=== PATIENT | female | born 1990 | race Caucasian/White ===

== ENCOUNTER 2021-01-08 14:10 | Emergency (ER) | payer SELFPAY ==
[~2021-01-08] VITALS: Ht 160 cm; Wt 125.0 kg
[2021-01-08] MEDS ORDERED: INDERAL10 M1 PO (14:33)
[2021-01-08] MEDS ORDERED: PAROXETINE20 MG PO (14:33)
[2021-01-08 14:51] LABS: URINE BILIRUBIN - DIPSTICK NEGATIVE (NEGATIVE); URINE BLOOD DIPSTICK NEGATIVE (NEGATIVE); URINE CLARITY CLEAR; URINE COLOR YELLOW; URINE GLUCOSE - DIPSTICK NEGATIVE (NEGATIVE); URINE KETONE NEGATIVE (NEGATIVE); URINE LEUK ESTERASE NEGATIVE (Negative); URINE NITRITE - DIPSTICK NEGATIVE (Negative); URINE PH 5.5 (4.5-8.0); URINE PROTEIN - DIPSTICK NEGATIVE (NEG-TRACE); URINE SPECIFIC GRAVITY >=1.030; URINE UROBILINOGEN - DIPSTICK 0.2 E.U./dL (0.2)
[2021-01-08 15:04] VITALS: BP 196/101
[2021-01-08] MEDS ORDERED: MEDDOSEPAK PO (16:30)
[2021-01-08] MEDS ORDERED: VENTOLIN HFA IN (16:30)
[2021-01-08] MEDS ORDERED: ALBUTEROL SUL0.083 % IN (16:30)
[2021-01-09] MEDS ORDERED: AZITHROMYCIN500 MG PO (17:46)
[2021-01-09] MEDS ORDERED: FIORICET PO (17:46)
== END 2021-01-08 16:38 | disposition home or self-care (01) | DRG 866 ==
LOC: ED 14:10
DX: B34.9 Viral infection, unspecified (principal); Z20.822 Contact with and (suspected) exposure to COVID-19

== ENCOUNTER 2021-01-09 15:47 | Emergency (ER) | payer SELFPAY ==
[~2021-01-09] VITALS: Ht 160 cm; Wt 124.7 kg
[~2021-01-09 15:47] MED LIST: ALBUTEROL SUL0.083 % IN; INDERAL10 M1 PO; MEDDOSEPAK PO; PAROXETINE20 MG PO; VENTOLIN HFA IN
[2021-01-09 16:19] LABS: HEMATOCRIT 43.9 % (37.0-47.0); HEMOGLOBIN 14.6 g/dl (12.0-16.0); IMMATURE GRANULOCYTES 0.2 % (0.0-5.0); MEAN CELL VOLUME 79.2 fL CALC (80.0-100.0); MEAN CORPUSCULAR HGB 26.4 pG CALC (26.0-32.0); MEAN CORPUSCULAR HGB CONC 33.3 g/dL CAL (32.0-36.0); NEUT# 14.99 thou/uL (2.00-7.15); RED BLOOD COUNT 5.54 mill/uL (4.20-5.60); RED CELL DISTRI WIDTH 13.9 % (11.5-15.5)
[2021-01-09 16:24] LABS: HCG SERUM/URINE (NEG/POS) NEGATIVE (NEGATIVE)
[2021-01-09 16:29] LABS: ALKALINE PHOSPHATASE 69 u/l (38-126); ANION GAP 20 (6-22 (CALC)); BILIRUBIN, TOTAL 0.6 mg/dL (0.0-1.4); BUN 12 mg/dL (7-17); BUN/CREATININE RATIO 18 (12-20 (CALC)); CARBON DIOXIDE 23 mmol/l (22-30); CHLORIDE 102 mmol/l (95-108); CREATININE 0.7 mg/dL (0.5-1.0); GFR > 60 ML/MIN (>=60 (CALC)); GFR FOR AFR.AMER. > 60 ML/MIN (>=60 (CALC)); POTASSIUM 3.8 mmol/l (3.5-5.1); SGOT/AST 37 u/l (14-36); SODIUM 141 mmol/l (137-146); TOTAL PROTEIN 9.3 g/dL (6.3-8.2)
[2021-01-09 16:41] LABS: MYOGLOBIN 38 ng/mL (0 - 62)
[2021-01-09 17:10] LABS: URINE BILIRUBIN - DIPSTICK NEGATIVE (NEGATIVE); URINE BLOOD DIPSTICK TRACE-INTACT (NEGATIVE); URINE COLOR YELLOW; URINE GLUCOSE - DIPSTICK NEGATIVE (NEGATIVE); URINE KETONE NEGATIVE (NEGATIVE); URINE LEUK ESTERASE NEGATIVE (NEGATIVE); URINE NITRITE - DIPSTICK NEGATIVE (Negative); URINE PH 5.5 (4.5-8.0); URINE PROTEIN - DIPSTICK 30 mg/dL (NEG-TRACE); URINE SPECIFIC GRAVITY >=1.030; URINE UROBILINOGEN - DIPSTICK 0.2 E.U./dL (0.2)
[2021-01-09 17:19] LABS: URINE SQUAMOUS EPITHELIAL CELL FEW EPI/hpf (0-FEW)
[2021-01-09 17:20] LABS: URINE MUCUS FEW hpf (NONE-FEW)
[2021-01-09] MEDS ORDERED: FIORICET PO (17:46)
[2021-01-09] MEDS ORDERED: AZITHROMYCIN500 MG PO (17:46)
[2021-01-09 17:56] VITALS: BP 128/83
== END 2021-01-09 18:02 | disposition home or self-care (01) | DRG 203 ==
LOC: ED 15:47
DX: J45.909 Unspecified asthma, uncomplicated (principal); I10 Essential (primary) hypertension; Z20.822 Contact with and (suspected) exposure to COVID-19

== ENCOUNTER 2021-08-12 15:36 | Emergency (ER) | payer MEDICAID ==
[~2021-08-12] VITALS: Ht 160 cm; Wt 127.3 kg
[~2021-08-12 15:36] MED LIST changes: +AZITHROMYCIN500 MG PO; +FIORICET PO
[2021-08-12 16:38] LABS: IMMATURE GRANULOCYTES 0.2 % (0.0-5.0); MEAN CORPUSCULAR HGB 26.6 pG CALC (26.0-32.0); MEAN CORPUSCULAR HGB CONC 32.1 g/dL CAL (32.0-36.0); NEUT# 8.87 thou/uL (2.00-7.15); RED BLOOD COUNT 4.7 mill/uL (4.20-5.60); RED CELL DISTRI WIDTH 13.9 % (11.5-15.5)
[2021-08-12 16:39] LABS: URINE BILIRUBIN - DIPSTICK NEGATIVE (NEGATIVE); URINE BLOOD DIPSTICK NEGATIVE (NEGATIVE); URINE COLOR YELLOW; URINE GLUCOSE - DIPSTICK NEGATIVE (NEGATIVE); URINE KETONE NEGATIVE (NEGATIVE); URINE LEUK ESTERASE NEGATIVE (NEGATIVE); URINE PH 6.5 (4.5-8.0); URINE PROTEIN - DIPSTICK NEGATIVE (NEG-TRACE); URINE SPECIFIC GRAVITY 1.025; URINE UROBILINOGEN - DIPSTICK 0.2 E.U./dL (0.2)
[2021-08-12 16:40] LABS: HEMOGLOBIN 12.5 g/dl (12.0-16.0)
[2021-08-12 16:43] LABS: URINE NITRITE - DIPSTICK NEGATIVE (Negative)
[2021-08-12 16:53] LABS: ALBUMIN 4.5 g/dL (3.2-5.0); ALKALINE PHOSPHATASE 68 u/l (38-126); ANION GAP 14 (6-22 (CALC)); BILIRUBIN, TOTAL 0.4 mg/dL (0.0-1.4); BUN 14 mg/dL (7-17); BUN/CREATININE RATIO 17 (12-20 (CALC)); CARBON DIOXIDE 26 mmol/l (22-30); CHLORIDE 102 mmol/l (95-108); CREATININE 0.9 mg/dL (0.5-1.0); GFR > 60 ML/MIN (>=60 (CALC)); GFR FOR AFR.AMER. > 60 ML/MIN (>=60 (CALC)); POTASSIUM 3.9 mmol/l (3.5-5.1); SGOT/AST 29 u/l (14-36); SODIUM 138 mmol/l (137-146)
[2021-08-12] MEDS ORDERED: TRAMADOL HYDROC50 M1 PO (18:48)
[2021-08-12] MEDS ORDERED: ZOFRAN4 MG/TAB PO (18:48)
[2021-08-12 19:14] VITALS: BP 168/72
== END 2021-08-12 19:14 | disposition home or self-care (01) ==
LOC: ED 15:36
PROVIDERS: Family Medicine
DX: R10.9 Unspecified abdominal pain (principal); I10 Essential (primary) hypertension

== ENCOUNTER 2021-08-13 07:25 | Emergency (ER) | payer MEDICAID ==
[~2021-08-13] VITALS: Ht 160 cm; Wt 127.0 kg
[~2021-08-13 07:25] MED LIST changes: +TRAMADOL HYDROC50 M1 PO; +ZOFRAN4 MG/TAB PO
[2021-08-13 07:58] LABS: HEMATOCRIT 39.3 % (37.0-47.0); HEMOGLOBIN 12.7 g/dl (12.0-16.0); IMMATURE GRANULOCYTES 0.3 % (0.0-5.0); MEAN CELL VOLUME 83.3 fL CALC (80.0-100.0); MEAN CORPUSCULAR HGB 26.9 pG CALC (26.0-32.0); MEAN CORPUSCULAR HGB CONC 32.3 g/dL CAL (32.0-36.0); NEUT# 7.59 thou/uL (2.00-7.15); RED BLOOD COUNT 4.72 mill/uL (4.20-5.60)
[2021-08-13 08:10] LABS: ALBUMIN 4.3 g/dL (3.2-5.0); ALKALINE PHOSPHATASE 62 u/l (38-126); ANION GAP 13 (6-22 (CALC)); BILIRUBIN, TOTAL 0.5 mg/dL (0.0-1.4); BUN 16 mg/dL (7-17); BUN/CREATININE RATIO 22 (12-20 (CALC)); CARBON DIOXIDE 27 mmol/l (22-30); CHLORIDE 103 mmol/l (95-108); CREATININE 0.7 mg/dL (0.5-1.0); GFR > 60 ML/MIN (>=60 (CALC)); GFR FOR AFR.AMER. > 60 ML/MIN (>=60 (CALC)); LIPASE 54 u/l (23-300); POTASSIUM 4.2 mmol/l (3.5-5.1); SGOT/AST 31 u/l (14-36); SODIUM 138 mmol/l (137-146); TOTAL PROTEIN 7.7 g/dL (6.3-8.2)
[2021-08-13 09:04] LABS: URINE BILIRUBIN - DIPSTICK NEGATIVE (NEGATIVE); URINE BLOOD DIPSTICK NEGATIVE (NEGATIVE); URINE COLOR YELLOW; URINE GLUCOSE - DIPSTICK NEGATIVE (NEGATIVE); URINE KETONE NEGATIVE (NEGATIVE); URINE LEUK ESTERASE NEGATIVE (NEGATIVE); URINE PH 5.5 (4.5-8.0); URINE PROTEIN - DIPSTICK NEGATIVE (NEG-TRACE); URINE SPECIFIC GRAVITY >=1.030; URINE UROBILINOGEN - DIPSTICK 0.2 E.U./dL (0.2)
[2021-08-13 09:05] LABS: URINE NITRITE - DIPSTICK NEGATIVE (Negative)
[2021-08-13 10:10] VITALS: BP 152/87
== END 2021-08-13 10:19 | disposition home or self-care (01) ==
LOC: ED 07:25
PROVIDERS: Family Medicine
DX: M54.50 Low back pain, unspecified (principal); I10 Essential (primary) hypertension; E66.9 Obesity, unspecified; Z68.42 Body mass index [BMI] 45.0-49.9, adult; Z87.442 Personal history of urinary calculi
CPT/HCPCS: Q9967

== ENCOUNTER 2022-01-23 12:28 | Emergency (ER) | payer MEDICAID ==
[~2022-01-23] VITALS: Ht 160 cm; Wt 136.3 kg
[2022-01-23 12:55] VITALS: BP 153/103
[2022-01-23] MEDS ORDERED: SEROQUEL100 MG PO (12:59)
[2022-01-23] MEDS ORDERED: DULOXETINE HYDR30 MG PO (12:59)
[2022-01-23 13:00] VITALS: BP 150/104
[2022-01-23] MEDS ORDERED: CLONAZEPAM1 M1 PO (13:00)
[2022-01-23] MEDS ORDERED: NAPROXEN500 MG PO (13:09)
[2022-01-23] MEDS ORDERED: PERCOCET 5/321 COMBO PO (13:09)
[2022-01-23] MEDS ORDERED: PENICILLN VK500 MG PO (13:09)
[2022-01-23 13:16] VITALS: BP 146/102
[2022-01-23 13:33] VITALS: BP 146/102
== END 2022-01-23 13:33 | disposition home or self-care (01) ==
LOC: ED 12:28
DX: K02.9 Dental caries, unspecified (principal); K04.7 Periapical abscess without sinus; S02.5XXA Fracture of tooth (traumatic), initial encounter for closed fracture; I10 Essential (primary) hypertension; X58.XXXA Exposure to other specified factors, initial encounter

== ENCOUNTER 2022-02-19 08:31 | Emergency (ER) | payer MEDICAID ==
[~2022-02-19] VITALS: Ht 160 cm; Wt 136.0 kg
[~2022-02-19 08:31] MED LIST changes: +CLONAZEPAM1 M1 PO; +DULOXETINE HYDR30 MG PO; +NAPROXEN500 MG PO; +PENICILLN VK500 MG PO; +PERCOCET 5/321 COMBO PO; +SEROQUEL100 MG PO
[2022-02-19 08:44] VITALS: BP 144/89
[2022-02-19 08:46] VITALS: BP 138/89
[2022-02-19 09:01] VITALS: BP 134/86
[2022-02-19 09:01] LABS: HEMATOCRIT 36.4 % (37.0-47.0); HEMOGLOBIN 11.9 g/dl (12.0-16.0); IMMATURE GRANULOCYTES 0.5 % (0.0-5.0); MEAN CELL VOLUME 82.7 fL CALC (80.0-100.0); MEAN CORPUSCULAR HGB CONC 32.7 g/dL CAL (32.0-36.0); NEUT# 6.54 thou/uL (2.00-7.15); RED BLOOD COUNT 4.4 mill/uL (4.20-5.60); RED CELL DISTRI WIDTH 14.1 % (11.5-15.5)
[2022-02-19 09:16] LABS: ALKALINE PHOSPHATASE 58 u/l (38-126); ANION GAP 12 (6-22 (CALC)); BUN 10 mg/dL (7-17); BUN/CREATININE RATIO 16 (12-20 (CALC)); CARBON DIOXIDE 24 mmol/l (22-30); CHLORIDE 106 mmol/l (95-108); CREATININE 0.6 mg/dL (0.5-1.0); GFR FOR AFR.AMER. > 60 ML/MIN (>=60 (CALC)); GFR OTHER RACES > 60 ML/MIN (>=60 (CALC)); POTASSIUM 4.4 mmol/l (3.5-5.1); SGOT/AST 26 u/l (14-36); SODIUM 138 mmol/l (137-146)
[2022-02-19 09:19] LABS: BILIRUBIN, TOTAL 0.1 mg/dL (0.0-1.4)
[2022-02-19 09:31] LABS: URINE BILIRUBIN - DIPSTICK NEGATIVE (NEGATIVE); URINE BLOOD DIPSTICK NEGATIVE (NEGATIVE); URINE COLOR YELLOW; URINE GLUCOSE - DIPSTICK NEGATIVE (NEGATIVE); URINE KETONE NEGATIVE (NEGATIVE); URINE LEUK ESTERASE NEGATIVE (NEGATIVE); URINE PH 6.5 (4.5-8.0); URINE PROTEIN - DIPSTICK NEGATIVE (NEG-TRACE); URINE SPECIFIC GRAVITY 1.015; URINE UROBILINOGEN - DIPSTICK 0.2 E.U./dL (0.2)
[2022-02-19 09:32] LABS: URINE NITRITE - DIPSTICK NEGATIVE (Negative)
[2022-02-19 09:41] VITALS: BP 137/81
[2022-02-19 10:25] VITALS: BP 139/80
[2022-02-19] MEDS ORDERED: NEBULIZER KIT/TUBING PO (11:18)
[2022-02-19] MEDS ORDERED: PROVENTIL0.083 % IN (11:18)
[2022-02-19] MEDS ORDERED: PREDNISONE50 MG PO (11:18)
[2022-02-19] MEDS ORDERED: PROAIR HFA108 MCG/AC PO (11:18)
[2022-02-19] MEDS ORDERED: ZPAK PO (11:18)
[2022-02-19 11:23] VITALS: BP 139/80
[2022-02-19] MEDS ORDERED: CHERATUSSIN PO (11:34)
== END 2022-02-19 11:41 | disposition home or self-care (01) ==
LOC: ED 08:31
PROVIDERS: Family Medicine
DX: U07.1 COVID-19 (principal); J40 Bronchitis, not specified as acute or chronic; I10 Essential (primary) hypertension; E66.9 Obesity, unspecified

== ENCOUNTER 2022-03-09 13:00 | Emergency (ER) | payer SELFPAY ==
[2022-03-09] VITALS (10 sets, daily range): BP systolic 131–186; BP diastolic 87–109
[~2022-03-09] VITALS: Ht 160 cm; Wt 136.0 kg
[~2022-03-09 13:00] MED LIST changes: +CHERATUSSIN PO; +NEBULIZER KIT/TUBING PO; +PREDNISONE50 MG PO; +PROAIR HFA108 MCG/AC PO; +PROVENTIL0.083 % IN; +ZPAK PO
[2022-03-09 13:25] LABS: HEMATOCRIT 36.3 % (37.0-47.0); HEMOGLOBIN 11.9 g/dl (12.0-16.0); IMMATURE GRANULOCYTES 0.4 % (0.0-5.0); MEAN CELL VOLUME 83.8 fL CALC (80.0-100.0); MEAN CORPUSCULAR HGB 27.5 pG CALC (26.0-32.0); MEAN CORPUSCULAR HGB CONC 32.8 g/dL CAL (32.0-36.0); NEUT# 9.32 thou/uL (2.00-7.15); RED BLOOD COUNT 4.33 mill/uL (4.20-5.60); RED CELL DISTRI WIDTH 14.7 % (11.5-15.5)
[2022-03-09 13:37] LABS: ALBUMIN 4.8 g/dL (3.2-5.0); ALKALINE PHOSPHATASE 67 u/l (38-126); ANION GAP 16 (6-22 (CALC)); BUN 11 mg/dL (7-17); BUN/CREATININE RATIO 15 (12-20 (CALC)); CARBON DIOXIDE 25 mmol/l (22-30); CHLORIDE 103 mmol/l (95-108); CREATININE 0.7 mg/dL (0.5-1.0); GFR FOR AFR.AMER. > 60 ML/MIN (>=60 (CALC)); GFR OTHER RACES > 60 ML/MIN (>=60 (CALC)); POTASSIUM 3.8 mmol/l (3.5-5.1); SGOT/AST 28 u/l (14-36); SODIUM 141 mmol/l (137-146); TOTAL PROTEIN 8.3 g/dL (6.3-8.2)
[2022-03-09 13:40] LABS: BILIRUBIN, TOTAL 0.4 mg/dL (0.0-1.4)
[2022-03-09] MEDS ORDERED: PROAIR HFA108 MCG/AC PO (14:54)
[2022-03-09] MEDS ORDERED: ADVAIR HF1 IN (14:54)
[2022-03-09] MEDS ORDERED: COMBIVENT RESPIMAT IN (14:54)
[2022-03-09] MEDS ORDERED: PROVENTIL0.083 % IN (14:54)
== END 2022-03-09 18:11 | disposition home or self-care (01) | DRG 313 ==
LOC: ED 13:00
PROVIDERS: Family Medicine
DX: R07.89 Other chest pain (principal); R06.02 Shortness of breath; J45.909 Unspecified asthma, uncomplicated; I10 Essential (primary) hypertension; E66.9 Obesity, unspecified